=== PATIENT | female | born 1975 | race Caucasian/White ===

== ENCOUNTER 2022-01-19 04:23 | Observation (INO) ==
[2022-01-19] MEDS ORDERED: Melatonin 3 MG TABLET PO PRN ×2 (14:00→19:20)
[2022-01-19] MEDS ORDERED: Ondansetron 4 MG/2 ML VIAL IVP PRN ×2 (14:00→19:20)
[2022-01-19] MEDS ORDERED: Acetaminophen 325 MG TABLET PO PRN ×2 (14:00→19:20)
[2022-01-19] MEDS ORDERED: Mag Hydrox/Al Hydrox/Simeth 30 ML UDC PO PRN ×2 (14:00→19:20)
[2022-01-19] MEDS ORDERED: Naloxone 0.4 MG/ML INJ IVP PRN ×2 (14:00→19:20)
[2022-01-19] MEDS ORDERED: *HR* OxyCODONE Immed Rel 5 MG TABLET PO PRN ×2 (14:00→19:20)
[2022-01-19] MEDS ORDERED: *HR* FentaNYL (PF) 100 MCG/2 ML VIAL IVP PRN (17:18)
[2022-01-19] MEDS ORDERED: *HR* Propofol 200 MG/20 ML VIAL IVP ONE (17:31)
[2022-01-19] MEDS ORDERED: *HR* Midazolam HCl 2 MG/2 ML VIAL ONE (17:31)
[2022-01-19] MEDS ORDERED: *HR* FentaNYL (PF) 100 MCG/2 ML VIAL ONE ×2 (17:31→18:21)
[2022-01-19] MEDS ORDERED: Isovue-300 50ML VIAL ONE (17:39)
[2022-01-19] MEDS ORDERED: Ketorolac 30 MG/ML VIAL ONE (17:57)
[2022-01-19] MEDS ORDERED: Ondansetron 4 MG/2 ML VIAL ONE (17:58)
[2022-01-19] MEDS ORDERED: Sugammadex Sodium 200 MG/2 ML VIAL IV ONE (18:17)
[2022-01-19] MEDS: *HR* Heparin 5,000 UNIT/ML VIAL SQ SCH (21:09)
[2022-01-19] MEDS ORDERED: *HR* Heparin 5,000 UNIT/ML VIAL SQ SCH (22:00)
[2022-01-20] MEDS: *HR* Heparin 5,000 UNIT/ML VIAL SQ SCH (04:02)
[2022-01-20 04:44] LABS: Basophils % 0.2 %; Hematocrit 38.9 % (35.3-44.9); Immature Granulocytes % 0.2 % (0-4); Lymphocytes # 0.6 K/mcL (0.6-4.6); Lymphocytes % 10.7 %; Mean Corpuscular HGB Conc 33.4 g/dL (31.6-35.5); Mean Corpuscular Hemoglobin 34.4 pg (28.0-33.3); Mean Corpuscular Volume 102.9 fL (83.0-100.0); Mean Platelet Volume 10.3 fL (9.4-12.4); Monocytes # 0.1 K/mcL (0.0-1.3); Monocytes % 1.7 %; Platelet Count 160 K/mcL (140-400); Red Blood Count 3.78 M/mcL (3.82-4.97); Red Cell Distribution Width 12.7 % (11.5-14.5); Segmented Neutrophils % 87.2 %; White Blood Count 5.7 K/mcL (4.3-11.1)
[2022-01-20 05:03] LABS: BUN/Creatinine Ratio 20 (6-26); Blood Urea Nitrogen 13 mg/dL (6-20); Calcium 8.2 mg/dL (8.6-10.3); Carbon Dioxide 21 mEq/L (23-29); Chloride 108 mEq/L (98-107); Glucose 147 mg/dL (70-105); Magnesium 1.7 mg/dL (1.6-2.6); Osmolality,Calculated 287 (280-300); Phosphorous 1.9 mg/dL (2.7-4.5); Potassium 3.7 mEq/L (3.5-5.1); Sodium 137 mEq/L (136-145); eGFR For African Americans > 60 (> 60); eGFR For Non-African Americans > 60 (> 60)
[2022-01-20 07:01] VITALS: BP 149/93; PULSE 75; TEMP 97.9; O2SAT 93
== END 2022-01-20 13:33 | disposition home or self-care (01) ==
LOC: 3BNU → SUATTDRO 13:39
PROVIDERS: ADMIT Student in an Organized Health Care Education/Training Program; ATTEND Internal Medicine